=== PATIENT | male | born 1995 | race Two or more races ===

== ENCOUNTER 2017-12-19 22:49 | Emergency (ER) | payer SELFPAY ==
[~2017-12-19] VITALS: Ht 167.6 cm; Wt 68.0 kg
[2017-12-19 23:28] LABS: FECAL OB PT POSITIVE (NEG)
[2017-12-19] MEDS ORDERED: CONTRAST GIVEN. MC PRN (23:45)
[2017-12-19] MEDS ORDERED: HYOSCYAMINE 0.125 MG TAB.RAPDIS PO ONE (23:45)
[2017-12-19 23:47] LABS: BASO # 0.1 x10^3/uL (0.0-0.2); BASO % 1 % (0-3); EOS # 0.2 x10^3/uL (0.0-0.7); EOS % 4 % (0-3); HEMATOCRIT 46.1 % (39.0-53.0); HEMOGLOBIN 16.3 g/dL (13.0-17.5); LYMPH # 2.4 x10^3/uL (1.0-4.8); LYMPH % 36 % (24-48); MEAN CORPUSCULAR HEMOGLOBIN 32 pg (25-35); MEAN CORPUSCULAR HGB CONC 35 g/dL (31-37); MEAN CORPUSCULAR VOLUME 89 fL (79-100); MONO # 0.5 x10^3/uL (0.0-1.1); MONO % 7 % (0-9); NEUT # 3.5 x10^3uL (1.8-7.7); NEUT % 53 % (31-73); PLATELET COUNT 177 x10^3/uL (140-400); RED BLOOD COUNT 5.17 x10^6/uL (4.30-5.70); RED CELL DISTRIBUTION WIDTH 12.3 % (11.5-14.5); WHITE BLOOD COUNT 6.7 x10^3/uL (4.0-11.0)
[2017-12-19 23:55] LABS: CALCIUM 9.1 mg/dL (8.5-10.1); GFR 91.8; POTASSIUM 3.5 mmol/L (3.5-5.1)
[2017-12-19 23:56] LABS: PROTHROMBIN TIME PATIENT 12.4 SEC (11.7-14.0)
[2017-12-20] MEDS ORDERED: IOHEXOL 300 MG/ML 100ML VIAL. IV ONE
[2017-12-20 00:02] LABS: ALBUMIN 3.9 g/dL (3.4-5.0); TOTAL BILIRUBIN 0.2 mg/dL (0.2-1.0); TOTAL PROTEIN 7.7 g/dL (6.4-8.2)
--- NOTE | 2017-12-20 01:28 | RAD ---
INDICATION: GI BLEEDING, ABDOMEN PAIN COMPARISON: None. TECHNIQUE: Axial CT images obtained through the abdomen and pelvis with contrast. One or more of the following individualized dose reduction techniques were utilized for this examination: 1. Automated exposure control; 2. Adjustment of the mA and/or kV according to patient size; 3. Use of iterative reconstruction technique. FINDINGS: Abdominal aorta is not aneurysmal. Small fat-containing umbilical hernia. No intrahepatic bile duct dilation. Gallbladder is somewhat contracted. No peripancreatic fluid collection. Spleen unremarkable. No left-sided hydronephrosis. Urinary bladder has minimal urine within it at time of exam. No right-sided hydronephrosis. Tortuous appearance of the sigmoid colon which has a redundant appearance. Moderate stool in the colon. No right lower quadrant inflammatory changes to suggest appendicitis. IMPRESSION: 1. No hydronephrosis. 2. Appendix not well seen but no definite inflammatory changes at right lower quadrant. 3. Redundant appearance of the sigmoid colon is identified. There is also some dilatation of the sigmoid colon with distal decompression. 4. Pars defects L5. Electronically signed by: Guy Bhagat MD (12/20/2017 1:24 AM) [id number]
[2017-12-20] MEDS ORDERED: HYDR30CR61 RC (01:57)
[2017-12-20] MEDS ORDERED: HYOS0.1264 PO (01:57)
--- NOTE | 2017-12-20 01:57 | PHYS DOC ---
Past Medical History Past Medical History: No Pertinent History Past Surgical History: No Surgical History Alcohol Use: Occasionally Drug Use: None Adult General Chief Complaint Chief Complaint: BLOODY STOOL HPI HPI Patient is a 22 year old male who presents with lower abdominal pain and rectal bleeding for the past week. Notes blood only on the stool and when he wipes. Pain is been constant. Denies any nausea or vomiting. Denies any black, tarry-looking stools. Denies any trauma. Denies any anal receptive intercourse. Nothing seems to make this better or worse. Patient has not taken any NSAIDs for the discomfort. Denies any rashes or bruising. Denies any fever. Denies any recent travel. [] Review of Systems Review of Systems Constitutional: Denies fever or chills [] Eyes: Denies change in visual acuity, redness, or eye pain [] HENT: Denies nasal congestion or sore throat [] Respiratory: Denies cough or shortness of breath [] Cardiovascular: No chest pain or palpitations[] GI: See history of present illness[] : Denies dysuria or hematuria [] Musculoskeletal: Denies back pain or joint pain [] Integument: Denies rash or skin lesions [] Neurologic: Denies headache, focal weakness or sensory changes [] Endocrine: Denies polyuria or polydipsia [] All other systems were reviewed and found to be within normal limits, except as documented in this note. Current Medications Current Medications Current Medications Medications (Trade) Dose Ordered Sig/Tayler Start Time Stop Time Status Last Admin Dose Admin Hyoscyamine (Anaspaz) 0.25 mg 1X ONCE 12/19/17 23:45 12/19/17 23:46 DC 12/19/17 23:49 0.25 MG Info (CONTRAST GIVEN -- Rx MONITORING) 1 each PRN DAILY PRN 12/19/17 23:45 12/21/17 23:44 Iohexol (Omnipaque 300 Mg/ml) 75 ml 1X ONCE 12/20/17 00:00 12/20/17 00:01 DC 12/20/17 00:36 75 ML Allergies Allergies Allergies Coded Allergies Type Severity Reaction Last Updated Verified No Known Drug Allergies 12/19/17 No Physical Exam Physical Exam Constitutional: Well developed, well nourished, no acute distress, non-toxic appearance. [] HENT: Normocephalic, atraumatic, bilateral external ears normal, oropharynx moist, no oral exudates, nose normal. [] Eyes: PERRLA, EOMI, conjunctiva normal, no discharge. [] Neck: Normal range of motion, no tenderness, supple, no stridor. [] Cardiovascular:Heart rate regular rhythm, no murmur [] Lungs & Thorax: Bilateral breath sounds clear to auscultation [] Abdomen: Bowel sounds normal, soft, tenderness present bilateral lower quadrants. No rebound guarding or rigidity, no masses, no pulsatile masses. Rectal: Normal tone, brown stool, prostate normal position, nontender [] Skin: Warm, dry, no erythema, no rash. [] Back: No tenderness, no CVA tenderness. [] Extremities: No tenderness, no cyanosis, no clubbing, ROM intact, no edema. [] Neurologic: Alert and oriented X 3, normal motor function, normal sensory function, no focal deficits noted. [] Psychologic: Affect normal, judgement normal, mood normal. [] Current Patient Data Vital Signs Vital Signs Date Time Temp Pulse Resp B/P (MAP) Pulse Ox O2 Delivery O2 Flow Rate FiO2 12/19/17 23:07 98.4 64 20 148/67 (94) 99 Room Air 98.4 Lab Values Laboratory Tests Test 12/19/17 23:20 12/19/17 23:38 Stool Occult Blood Positive (NEG) White Blood Count 6.7 x10^3/uL (4.0-11.0) Red Blood Count 5.17 x10^6/uL (4.30-5.70) Hemoglobin 16.3 g/dL (13.0-17.5) Hematocrit 46.1 % (39.0-53.0) Mean Corpuscular Volume 89 fL (79-100) Mean Corpuscular Hemoglobin 32 pg (25-35) Mean Corpuscular Hemoglobin Concent 35 g/dL (31-37) Red Cell Distribution Width 12.3 % (11.5-14.5) Platelet Count 177 x10^3/uL (140-400) Neutrophils (%) (Auto) 53 % (31-73) Lymphocytes (%) (Auto) 36 % (24-48) Monocytes (%) (Auto) 7 % (0-9) Eosinophils (%) (Auto) 4 % (0-3) H Basophils (%) (Auto) 1 % (0-3) Neutrophils # (Auto) 3.5 x10^3uL (1.8-7.7) Lymphocytes # (Auto) 2.4 x10^3/uL (1.0-4.8) Monocytes # (Auto) 0.5 x10^3/uL (0.0-1.1) Eosinophils # (Auto) 0.2 x10^3/uL (0.0-0.7) Basophils # (Auto) 0.1 x10^3/uL (0.0-0.2) Prothrombin Time 12.4 SEC (11.7-14.0) Prothrombin Time INR 1.0 (0.8-1.1) Sodium Level 139 mmol/L (136-145) Potassium Level 3.5 mmol/L (3.5-5.1) Chloride Level 99 mmol/L (98-107) Carbon Dioxide Level 32 mmol/L (21-32) Anion Gap 8 (6-14) Blood Urea Nitrogen 12 mg/dL (8-26) Creatinine 1.0 mg/dL (0.7-1.3) Estimated GFR (Cockcroft-Gault) 91.8 BUN/Creatinine Ratio 12 (6-20) Glucose Level 114 mg/dL (70-99) H Calcium Level 9.1 mg/dL (8.5-10.1) Total Bilirubin 0.2 mg/dL (0.2-1.0) Aspartate Amino Transferase (AST) 29 U/L (15-37) Alanine Aminotransferase (ALT) 41 U/L (16-63) Alkaline Phosphatase 91 U/L (46-116) Total Protein 7.7 g/dL (6.4-8.2) Albumin 3.9 g/dL (3.4-5.0) Albumin/Globulin Ratio 1.0 (1.0-1.7) Lipase 239 U/L (73-393) Laboratory Tests 12/19/17 23:38 Laboratory Tests 12/19/17 23:38 EKG EKG [] Radiology/Procedures Radiology/Procedures CT scan of the abdomen and pelvis 1. No hydronephrosis. 2. Appendix not well seen but no definite inflammatory changes at right lower quadrant. 3. Redundant appearance of the sigmoid colon is identified. There is also some dilatation of the sigmoid colon with distal decompression. 4. Pars defects L5.[] Course & Med Decision Making Course & Med Decision Making Pertinent Labs and Imaging studies reviewed. (See chart for details) ED course: No evidence of significant anemia, no bleeding diathesis, no evidence of upper GI bleed. No abdominal aortic aneurysm ED course: Patient arrived, was placed in bed, in tolerate exam well. Patient was transported to and from CT scan with thank him patient's. Patient received education help with the discomfort which did improve his pain. After return of lab and imaging findings, findings were relayed to the patient who voiced understanding. All questions were answered. Patient was discharged in improved condition.[] Dragon Disclaimer Dragon Disclaimer This electronic medical record was generated, in whole or in part, using a voice recognition dictation system. Departure Departure Impression: Primary Impression: Rectal bleeding Additional Impression: Abdominal pain Disposition: HOME, SELF-CARE Condition: GOOD Referrals: NO PCP (PCP) Patient Instructions: Abdominal Pain, Rectal Bleeding Additional Instructions: Follow-up with your regular doctor. If you do not have one, a list of some low- cost clinics have been provided. Return to the ER if worsening pain, worsening bleeding, or any other concerns. Eat a high-fiber diet including cereals with "fiber" or "bran" in the name. Avoid anti-inflammatory medicines like ibuprofen or Naprosyn. Scripts Hyoscyamine Sulfate (LEVSIN) 0.125 Mg Tablet 0.125 MG PO QID, #30 TAB Prov: PHILIPPERIZWAN MCKINNEY 12/20/17 Hydrocortisone (ANUSOL-HC) 30 Gm Cream..g. 1 FRANCISCO RC BID, #30 EACH Prov: RIZWAN PAEZ DO 12/20/17 Problem Qualifiers Additional Impression: Abdominal pain Abdominal location: lower abdomen, unspecified Qualified Codes: R10.30 - Lower abdominal pain, unspecified JAMESRASHID GARCIAMARISSA MCKINNEY Dec 20, 2017 01:57
[2017-12-20 02:30] VITALS: BP 111/58
== END 2017-12-20 02:37 | disposition home or self-care (01) ==
LOC: ER 22:49
DX: K62.5 Hemorrhage of anus and rectum (principal); R10.30 Lower abdominal pain, unspecified
CPT/HCPCS: 36415; 74177; 80053; 82274; 83690; 85025; 85610; 86850; 86900; 86901; 99285; Q9967